=== PATIENT | male | born 1990 | race African-American/Black ===

== ENCOUNTER 2019-04-04 17:11 | Emergency (ER) | payer OTHER, SELFPAY ==
[~2019-04-04] VITALS: Ht 182.9 cm; Wt 80.0 kg
[2019-04-04 17:44] LABS: BASOPHILS # (AUTO) 0.01 x10^3/uL (0-0.1); BASOPHILS % (AUTO) 0 % (0-1); EOSINOPHILS # (AUTO) 0.03 x10^3/uL (0-0.4); EOSINOPHILS % (AUTO) 1 % (1-7); LYMPHOCYTES # (AUTO) 1.75 x10^3/uL (1-3.4); LYMPHOCYTES % (AUTO) 31 % (22-44); MD NO; MEAN CORPUSCULAR HEMOGLOBIN 30.9 pg (27.5-34.5); MEAN CORPUSCULAR HGB CONC 33.5 g/dL (33.2-36.2); MEAN CORPUSCULAR VOLUME 92.2 fL (81-97); MEAN PLATELET VOLUME 7.6 fL (7.4-10.4); MONOCYTES % (AUTO) 11 % (2-9); NEUTROPHILS # (AUTO) 3.28 x10^3/uL (1.8-6.8); NEUTROPHILS % (AUTO) 58 % (42-75); PLATELET COUNT 225 x10^3/uL (130-400); RED BLOOD COUNT 4.76 x10^6/uL (4.38-5.82); RED CELL DISTRIBUTION WIDTH 12.7 % (9.4-14.8)
--- NOTE | 2019-04-04 17:48 | NUR ---
VALVER: PT AMBULATORY TO ROOM FROM LOBBY
[2019-04-04 17:56] LABS: ALANINE AMINOTRANSFERASE 35 U/L (12-78); ALBUMIN 4.1 g/dL (3.4-5.0); ANION GAP 5 mmol/L (5-15); CALCIUM 9.2 mg/dL (8.5-10.1); CHLORIDE 105 mmol/L (98-107); CREATININE 1.06 mg/dL (0.7-1.3)
[2019-04-04 17:59] LABS: ALKALINE PHOSPHATASE 54 U/L (45-117); BILIRUBIN,TOTAL 0.8 mg/dL (0.2-1.0); TOTAL PROTEIN 7.8 g/dL (6.4-8.2)
[2019-04-04 18:01] VITALS: BP 129/72
[2019-04-04 18:35] LABS: CULTURE INDICATED? YES; MICROSCOPIC INDICATED
--- NOTE | 2019-04-04 18:58 | NUR ---
REPORT FROM JONNY MORALES
== END 2019-04-04 19:09 | disposition home or self-care (01) ==
LOC: ED 18:45
DX: N30.00 Acute cystitis without hematuria (principal)
CPT/HCPCS: 36415; 76770; 80053; 81001; 85025; 87077; 87086; 87186; 87491; 87591; 99284